=== PATIENT | female | born 2000 | race Two or more races ===

== ENCOUNTER 2025-01-06 14:47 | Emergency (ER) | payer MEDICAID, SELFPAY ==
[2025-01-06 15:06] VITALS: BP 96/60; PULSE 90; RESP 17; TEMP 36.9; O2SAT 98
--- NOTE | 2025-01-06 15:15 | XR_ITS ---
Examination: OB Transvaginal ultrasound of the pelvis, complete Technique: Transvaginal sonographic images pelvis performed using moore scale imaging Exam date and time: January 06, 2025, 1558 hours INDICATIONS: Onset vaginal bleeding today FINDINGS: Uterus 9.4 cm no uterine mass or intrauterine gestation Endometrial stripe 17 mm Right ovary 3.0 cm arterial flow. Left ovary 2.9 cm arterial flow No fluid in the cul-de-sac IMPRESSION: Negative study.
[2025-01-06 15:58] LABS: Basophils # (Auto) 0.0 Thou/mm3 (0.0-0.2); Basophils % (Auto) 0 % (0-2.5); Eosinophils # (Auto) 0.0 Thou/mm3 (0.0-0.5); Eosinophils % (Auto) 1 % (0-10); Hematocrit 36.3 % (36.0-46.0); Hemoglobin 12.1 g/dL (12.0-16.0); Immature Granulocytes Auto 0.03 Thou/mm3 (0.00-0.00); Lymphocytes # (Auto) 2.1 Thou/mm3 (1.0-4.8); Lymphocytes % (Auto) 26 % (10-50); Mean Corpuscular HGB Conc 33.3 g/dl (31.0-37.0); Mean Corpuscular Hemoglobin 30.0 pg (25.0-35.0); Mean Corpuscular Volume 90 fL (80-100); Monocytes # (Auto) 0.5 Thou/mm3 (0.0-0.8); Monocytes % (Auto) 7 % (0-12); Neutrophils # (Auto) 5.2 Thou/mm3 (1.8-7.7); Neutrophils % (Auto) 66 % (37-80); Nucleated Red Blood Cell # 0.00 Thou/mm3 (0.00-0.00); Nucleated Red Blood Cell % 0 /100 WBC (0); Platelet Count 230 Thou/mm3 (140-440); RDW Standard Deviation 43.8 fL (36.4-46.3); Red Blood Count 4.03 Miln/mm3 (4.00-5.20); White Blood Count 7.9 Thou/mm3 (3.6-11.0)
[2025-01-06 16:31] LABS: Alanine Aminotransferase 8 U/L (10-49); Albumin, Serum 4.1 gm/dL (3.5-5.0); Albumin/Globulin Ratio 1.9 (1.2-2.2); Alkaline Phosphatase 62 U/L (46-116); Anion Gap 9 (7-16); Aspartate Amino Transferase 11 U/L (0-34); BUN/Creatinine Ratio 10 Ratio (12-20); Beta HCG,Quantitative 473 mIU/mL (<5.0); Bilirubin,Total 1.1 mg/dL (0.3-1.2); Blood Urea Nitrogen 7 mg/dL (9-23); Calcium 8.8 mg/dL (8.3-10.6); Calcium (Corrected) 8.8 mg/dL (8.5-10.1); Carbon Dioxide 23.3 mMol/L (20.0-31.0); Chloride 109 mMol/L (98-107); Creatinine (Component) 0.7 mg/dL (0.6-1.3); Globulin 2.2 gm/dL (2.3-3.5); Glucose 86 mg/dL (74-106); Osmolality,Calculated 278 (275-295); Potassium 3.9 mMol/L (3.4-5.1); Sodium 141 mMol/L (136-145); Total Protein 6.3 gm/dL (5.7-8.2); eGFR > 60 See Note
--- NOTE | 2025-01-06 16:45 | PC.NURSE ---
PT CALLED INSIDE/OUTSIDE OF LOBBY; NO RESPONSE AT THIS TIME.
--- NOTE | 2025-01-06 16:46 | EDNOTE_ITS ---
ED OB Contraction Preg RMI/HPI General Chief complaint: Vaginal Bleeding Stated complaint: 5 WEEKS VAGINAL BLEEDING X1HR Time Seen by Provider: 01/06/25 14:58 Arrival date/time: 01/06/25 14:47 24-year-old female presents to the emergency department today send she believes approximate 5 weeks had some vaginal spotting 1 hour ago Limitations: no limitations Related Data Allergies Allergy/AdvReac Type Severity Reaction Status Date / Time No Known Allergies Allergy Verified 01/06/25 14:50 Review of Systems Review of Systems Systems Reviewed: All systems reviewed, normal except as documented Constitutional Constitutional: Reports system reviewed and no additional complaints, except as documented, Denies fever(s) and Denies headache(s) Eyes Eyes: Reports system reviewed and no additional complaints, except as documented and Denies blurry vision ENT Ears, Nose, Mouth, and Throat: Reports system reviewed and no additional complaints, except as documented, Denies headache(s), Denies nasal congestion and Denies nasal discharge Cardiovascular Cardiovascular: Reports system reviewed and no additional complaints, except as documented, Denies chest pain and Denies dyspnea Respiratory Respiratory: Reports system reviewed and no additional complaints, except as documented, Denies chest congestion, Denies cough and Denies dyspnea Gastrointestinal Gastrointestinal: Reports system reviewed and no additional complaints, except as documented and Denies abdominal pain Genitourinary Genitourinary: Reports system reviewed and no additional complaints, except as documented and Reports abnormal vaginal bleeding Integumentary/Breasts Skin/Breast: Reports system reviewed and no additional complaints, except as documented and Denies rash Neurologic Neurologic: Reports system reviewed and no additional complaints, except as documented, Reports as per HPI and Denies headache(s) Past Medical History Past Medical History NEUROLOGIC: Negative Neurological Disorders or Seizures CARDIAC: Negative Cardiac Disorders or Congestive Heart Failure RESPIRATORY: Negative Chronic Obstructive Pulmonary Disease (COPD) or Asthma GASTROINTESTINAL: Negative Gastrointestinal Disorders GENITOURINARY: Negative Genitourinary Disorders or Renal Disease MUSCULOSKELETAL: Negative Musculoskeletal Disorders or Scoliosis ENDOCRINE: Negative Endocrine Disorders, Diabetes Mellitus Type 1 or Diabetes Mellitus Type 2 HEMATOLOGIC: Negative Blood Disorders or Anemia PSYCHO/SOCIAL: Negative Depression or Anxiety OTHER HISTORY: Negative Hospitalization, Autoimmune Disease, Falls, Blood Transfusions, Blood Transfusion Reaction or Anesthesia Reactions Family History FAMILY HISTORY: Negative Family Psychiatric Problems, Family Respiratory Disorders, Family Cardiac Disorders, Family Gastrointestinal Problems, Family Cancer, Family Surgery or Family Anesthesia Reaction Surgical History SURGICAL: Negative Section Social History SMOKING STATUS: Never smoker ED Exam General Limitations: Present no limitations General appearance: Present alert and in no apparent distress Head Head exam: Present atraumatic Eye Eye exam: Present normal appearance, PERRL and EOMI ENT ENT exam: Present normal exam, normal oropharynx and mucous membranes moist Neck Neck exam: Present normal inspection, full ROM and trachea midline Chest Chest inspection: Present normal inspection and symmetric chest wall rise Respiratory Respiratory exam: Present normal lung sounds bilaterally Cardiovascular Cardiovascular exam: Present regular rate, normal rhythm and normal heart sounds Abdominal Exam Abdominal exam: Present soft and normal bowel sounds Extremities Exam Extremities exam: Present normal inspection and full ROM Back Exam Back exam: Present normal inspection and full ROM Neurological Exam Neurological exam: Present alert, oriented X3 and CN II-XII intact Psychiatric Psychiatric exam: Present normal affect and normal mood Skin Skin exam: Present warm, dry, intact and normal color Course Quality Measures none Orders Category Date Time Status US OB transvaginal Stat Exams 01/06/25 15:15 Completed ABO/RH Type Stat Lab 01/06/25 15:47 Completed Beta HCG,Quantitative Stat Lab 01/06/25 15:47 Completed CBC Stat Lab 01/06/25 15:47 Completed Comprehensive Metabolic Panel Stat Lab 01/06/25 15:47 Completed Vital Signs Vital signs: Vital Signs Temperature 98.4 F 01/06/25 15:06 Pulse Rate 90 01/06/25 15:06 Respiratory Rate 17 01/06/25 15:06 Blood Pressure 96/60 01/06/25 15:06 Pulse Oximetry (%) 98 01/06/25 15:06 Oxygen Delivery Method Room Air 01/06/25 15:06 Vaginal Bleeding MDM Narrative MDM Narrative: 24-year-old female presents to the emergency department today send she believes approximate 5 weeks had some vaginal spotting 1 hour ago On exam patient well-appearing patient does not appear toxic no acute distress Lab work and imaging obtained Attempted to reevaluate patient and to discuss findings patient appears to have eloped prior to final disposition Patient data External records reviewed:: [facility] previous records Clinical information provided by:: patient Social determinants that could affect healthcare access:: none Patient has the following chronic illnesses:: None How is presenting disease/condition affected by chronic disease/condition?: no chronic disease Evaluation data The following diagnostics were reviewed and interpreted by me:: lab results and radiology exam(s) Lab and/or radiology exams considered but not ordered:: Labs radiology obtained Interpretation Summary: Reviewed by me Medications / Prescriptions Medications or Prescriptions considered but not ordered:: No meds Medication administrations:: No meds Consultations Consultation(s) initiated? (list below): No Diagnosis Vaginal Bleeding Differential Diagnosis: missed and threatened Most likely diagnosis given after review of the tests above:: Threatened Admission Indicated Admission indicated?: not indicated Admission Request Was there a request for admission?: No Disposition Plan Disposition Plan: Discharge Discharge Attestation Discharge Attestation: The patient and all family members were given an opportunity to ask questions and understood the discharge instructions. Discharge instructions specifically effects, indications for sooner follow up or return to the emergency department, and the expected course of current diagnosis. Patient condition: Stable Discharge Plan Plan Patient Disposition: Elopement Discharge Disposition comment: Stable Prescriptions/Referrals Referrals: Torres Stone MD [Primary Care Provider, [facility]] - 01/07/25 Problem List Clinical Impression: , threatened Patient/Caregiver Discharge Instructions Education Materials: ED Possible Miscarriage ... Additional Instructions: Please give repeat hCG level in the next 3 to 5 days for worsening symptoms or concerns return immediately Patient eloped prior to final disposition Print Language: Hebrew Stand Alone Forms: Work/School Release GET/TESSY Supervising Physician JEFF Supervising Physician: dr hammond
--- NOTE | 2025-01-06 17:05 | PC.NURSE ---
PT CALLED INSIDE/OUTSIDE OF ED LOBBY; NO RESPONSE AT THIS TIME.
--- NOTE | 2025-01-06 19:33 | PC.NURSE ---
PT CALLED INSIDE/OUTSIDE OF ED LOBBY; NO RESPONSE AT THIS TIME X3
== END 2025-01-06 19:33 | disposition left against medical advice (07) ==
PROVIDERS: Nurse Practitioner Primary Care; Emergency Provider Family Medicine; PCP Family Medicine
DX: O20.0 Threatened abortion (principal); Z3A.01 Less than 8 weeks gestation of pregnancy
CPT/HCPCS: 36415; 76817; 80053; 84702; 85025; 86900; 86901; 99283

== ENCOUNTER 2025-02-03 08:49 | Emergency (ER) | payer SELFPAY ==
[2025-02-03 08:50] VITALS: BMI 19.0
[2025-02-03 09:02] VITALS: BP 98/68; PULSE 98; RESP 18; TEMP 37; O2SAT 100
--- NOTE | 2025-02-03 12:22 | PD.EDADULT ---
ED General RME/HPI General Chief complaint: General Adult/Misc Complain Stated complaint: CONSTIPATED X5 DAYS Time Seen by Provider: 02/03/25 09:06 Arrival date/time: 02/03/25 08:49 24-year-old female presents to the emergency room today for complaints of constipation patient reports symptom onset 5 days ago patient reports no fever nausea or vomiting no abdominal distention patient does report being Limitations: no limitations Related Data Previous Rx's ?Medication ?Instructions ?Recorded docusate sodium 100 mg capsule 100 mg PO BID 7 days #14 caps 02/03/25 polyethylene glycol 3350 17 17 g PO QDAY 3 days #119 grams 02/03/25 gram/dose oral powder (Miralax) sodium phosphates 19 gram-7 118 ml [place] QDAY 1 day #133 mL 02/03/25 gram/118 mL enema (Fleet Enema) Allergies Allergy/AdvReac Type Severity Reaction Status Date / Time No Known Allergies Allergy Verified 02/03/25 08:52 Review of Systems Review of Systems Systems Reviewed: All systems reviewed, normal except as documented Constitutional Constitutional: Reports system reviewed and no additional complaints, except as documented, Denies fever(s) and Denies headache(s) Eyes Eyes: Reports system reviewed and no additional complaints, except as documented and Denies blurry vision ENT Ears, Nose, Mouth, and Throat: Reports system reviewed and no additional complaints, except as documented, Denies headache(s), Denies nasal congestion and Denies nasal discharge Cardiovascular Cardiovascular: Reports system reviewed and no additional complaints, except as documented, Denies chest pain and Denies dyspnea Respiratory Respiratory: Reports system reviewed and no additional complaints, except as documented, Denies chest congestion, Denies cough and Denies dyspnea Gastrointestinal Gastrointestinal: Reports system reviewed and no additional complaints, except as documented, Denies abdominal pain and Reports constipation Integumentary/Breasts Skin/Breast: Reports system reviewed and no additional complaints, except as documented and Denies rash Neurologic Neurologic: Reports system reviewed and no additional complaints, except as documented, Reports as per HPI and Denies headache(s) Past Medical History Past Medical History NEUROLOGIC: Negative Neurological Disorders or Seizures CARDIAC: Negative Cardiac Disorders or Congestive Heart Failure RESPIRATORY: Negative Chronic Obstructive Pulmonary Disease (COPD) or Asthma GASTROINTESTINAL: Negative Gastrointestinal Disorders GENITOURINARY: Negative Genitourinary Disorders or Renal Disease MUSCULOSKELETAL: Negative Musculoskeletal Disorders or Scoliosis ENDOCRINE: Negative Endocrine Disorders, Diabetes Mellitus Type 1 or Diabetes Mellitus Type 2 HEMATOLOGIC: Negative Blood Disorders or Anemia PSYCHO/SOCIAL: Negative Depression or Anxiety OTHER HISTORY: Negative Hospitalization, Autoimmune Disease, Falls, Blood Transfusions, Blood Transfusion Reaction or Anesthesia Reactions Family History FAMILY HISTORY: Negative Family Psychiatric Problems, Family Respiratory Disorders, Family Cardiac Disorders, Family Gastrointestinal Problems, Family Cancer, Family Surgery or Family Anesthesia Reaction Surgical History SURGICAL: Negative Section Social History SMOKING STATUS: Never smoker ED Exam General Limitations: Present no limitations General appearance: Present alert and in no apparent distress Head Head exam: Present atraumatic, normocephalic and normal inspection Eye Eye exam: Present normal appearance, PERRL and EOMI; Absent conjunctival injection ENT ENT exam: Present normal exam, normal oropharynx and mucous membranes moist Neck Neck exam: Present normal inspection, full ROM and trachea midline Chest Chest inspection: Present normal inspection and symmetric chest wall rise Respiratory Respiratory exam: Present normal lung sounds bilaterally Cardiovascular Cardiovascular exam: Present regular rate, normal rhythm and normal heart sounds Abdominal Exam Abdominal exam: Present soft and normal bowel sounds; Absent distention, tenderness, guarding, rebound or rigidity Extremities Exam Extremities exam: Present normal inspection and full ROM Back Exam Back exam: Present normal inspection and full ROM Neurological Exam Neurological exam: Present alert, oriented X3 and CN II-XII intact Psychiatric Psychiatric exam: Present normal affect and normal mood Skin Skin exam: Present warm, dry, intact and normal color Course Quality Measures none Vital Signs Vital signs: Vital Signs Temperature 98.6 F 02/03/25 09:02 Pulse Rate 98 02/03/25 09:02 Respiratory Rate 18 02/03/25 09:02 Blood Pressure 98/68 02/03/25 09:02 Pulse Oximetry (%) 100 02/03/25 09:02 Oxygen Delivery Method Room Air 02/03/25 09:02 O2 saturation 100% room air within normal limits Discharge Plan Plan Patient Disposition: HOME (Self Care) Discharge Disposition comment: Stable Prescriptions/Referrals Prescriptions/Med Rec: New docusate sodium 100 mg capsule 100 mg PO BID 7 Days Qty: 14 0RF Fleet Enema 19-7 gram/118 mL enema 118 ml OH QDAY 1 Days Qty: 133 0RF polyethylene glycol 3350 [Miralax] 17 gram/dose powder 17 g PO QDAY 3 Days Qty: 119 0RF Problem List Clinical Impression: Constipation Patient/Caregiver Discharge Instructions Education Materials: How the Colon Works Additional Instructions: Please follow up with your primary care doctor in the next 24-48hrs for any worsening symptoms return here immediately Print Language: Hebrew Stand Alone Forms: Melanie Award Info., Work/School Release, Patient Portal Info Letter PA/SLICER MACHINE OPERATOR Supervising Physician PA/SLICER MACHINE OPERATOR Supervising Physician: Dr. lin MDM Narrative MDM hospital course (for use when minimal MDM required): 24-year-old female presents to the emergency room today for complaints of constipation patient reports symptom onset 5 days ago patient reports no fever nausea or vomiting no abdominal distention patient does report being On exam patient does report pain With a female [employer] program coordinator I attempted to disimpact the patient per her request stool is too deep to disimpact. Patient be discharged home with a prescription for MiraLAX, docusate, fleets enema. Explained to the patient should her symptoms persist or worsen she should return for soapsuds enema Patient discharged home in no distress to follow-up with primary care doctor in the next 24 to 48 hours and for any worsening symptoms to return to the ER immediately Clinical Information Provided by: patient Medical Records reviewed [facility] Meds/Rx considered, not ordered describe: Rx given Labs/Rad/Tests considered, not ordered None Chronic Illness/Social Conditions which may negatively complicate care or outcome(s)-explain: None or not applicable EKG EKG not done Labs Labs: none Imaging Imaging interpretation: none Medication Administration(s) Rx given Diagnosis Differential Diagnosis ED Complaint MDM: Constipation obstipation
== END 2025-02-03 09:30 | disposition home or self-care (01) ==
LOC: SERX 10:20
PROVIDERS: Emergency Provider Emergency Medicine
DX: K59.00 Constipation, unspecified (principal)
CPT/HCPCS: 99281

== ENCOUNTER → 2025-03-11 | Outpatient (CLI) | payer MEDICAID, SELFPAY ==
--- NOTE | 2025-03-11 | XR_ITS ---
Examination: Complete OB ultrasound, less than 14 weeks, transabdominal Date and time of exam: March 11, 2025, 1136 hours INDICATIONS: No heart tones on examination in the doctor's office today Technique: Obstetrical ultrasound images less than 14 weeks performed via transabdominal imaging Findings: A normal shaped single intrauterine gestation is present in the uterus. CRL 7.1 cm corresponds to 13 weeks 2 days gestational age Cardiac motion 153 bpm Ultrasonographic survey of visible and placental structures unremarkable. Amniotic fluid volume appears appropriate for this estimated gestational age. Right ovary 3.4 cm x 3.5 cm arterial flow 16 x 19 mm corpus luteum cyst Left ovary 3.2 x 2.1 cm arterial flow IMPRESSION: Viable intrauterine gestation 13 weeks 2 days.
== END | disposition home or self-care (01) ==
LOC: SDIM 11:09 → CDIM 03-14 14:32
PROVIDERS: PCP Obstetrics & Gynecology; Referring Provider Obstetrics & Gynecology; Visit Provider Obstetrics & Gynecology
DX: O36.8120 Decreased fetal movements, second trimester, not applicable or unspecified (principal); Z3A.13 13 weeks gestation of pregnancy
CPT/HCPCS: 76801